=== PATIENT | male | born 1970 | race Two or more races ===

== ENCOUNTER 2024-03-20 17:17 | Emergency (ER) | payer MEDICAID, OTHER ==
[~2024-03-20] VITALS: Ht 177.8 cm; Wt 82.0 kg
[2024-03-20 19:20] LABS: Basophils # (auto) 0.1 10 ^3/uL (0-0.2); Eosinophils # (auto) 0.2 10 ^3/uL (0-0.8); Hemoglobin 13.8 g/dL (13.5-17.5); Lymphocytes # (auto) 1.3 10 ^3/uL (0.4-5.4); Monocytes # (auto) 0.6 10 ^3/uL (0-1.3); White Blood Cell 5.8 10^3/uL (4.4-10.8)
[2024-03-20 19:21] LABS: Basophils % (auto) 1.2 % (0.0-2.0); Eosinophils % (auto) 4.2 % (0.0-7.0); Hematocrit 40.7 % (41.0-53.0); Mean Corpuscular Hgb Conc. 33.9 g/dL (32.0-36.0); Mean Corpuscular Volume 100.4 fL (80.0-100.0); Monocytes % (auto) 9.8 % (0.0-12.0); Neutrophils # (auto) 3.6 10 ^3/uL (1.6-8.6); Neutrophils % (auto) 61.8 % (37.0-80.0); Nucleated Red Blood Cells % 0.1 %; Red Blood Cells 4.05 10^6/uL (4.5-5.90); Red Cell Distribution Width 15.2 % (11.8-14.3)
[2024-03-20 19:37] LABS: Alanine Aminotransferase 50 U/L (7-40); Alkaline Phosphatase 105 U/L (46-116); Anion Gap 8 (5-15); Aspartate Aminotransferase 108 U/L (13-40); Calcium 9.4 mg/dL (8.7-10.4); Carbon Dioxide 25 mmol/L (20-30); Chloride 109 mmol/L (98-107); Glucose 107 mg/dL (74-106); Potassium 3.6 mmol/L (3.5-5.1); Sodium 142 mmol/L (136-145)
[2024-03-20 19:38] LABS: Albumin 4.1 g/dL (3.2-4.8); Bilirubin, Total 2.8 mg/dL (0.2-1.0); Total Protein 7.9 g/dL (5.7-8.2)
[2024-03-20 19:40] LABS: BUN/Creatinine Ratio 6.8 (10.0-20.0); Blood Urea Nitrogen < 5 mg/dL (9-23)
[2024-03-20 20:18] VITALS: BP 151/84; RESP 20; TEMP 98; O2SAT 98
[2024-03-20 20:23] VITALS: PULSE 103
[2024-03-20] MEDS: diphenhdrAMINE HCL 25 MG CAP PO ONE (20:24)
[2024-03-20] MEDS: HYDROcodone-ACET 5/325MG TAB PO ONE (20:24)
[2024-03-20] MEDS: DexAMETHasone SOD PHOS 10MG/1ML VIAL INJ IM ONE (20:24)
[2024-03-20] MEDS ORDERED: CEPH500C PO (20:39)
[2024-03-20] MEDS ORDERED: IBUP-1455 PO (20:39)
== END 2024-03-20 20:41 | disposition home or self-care (01) ==
LOC: ER 17:17 → EDBD 17:17 → ER 20:41
DX: S60.561A Insect bite (nonvenomous) of right hand, initial encounter (principal); R74.8 Abnormal levels of other serum enzymes; R07.89 Other chest pain; W57.XXXA Bitten or stung by nonvenomous insect and other nonvenomous arthropods, initial encounter; Y93.89 Activity, other specified; Y92.89 Other specified places as the place of occurrence of the external cause; Y99.8 Other external cause status
CPT/HCPCS: 36415; 80053; 84484; 85025; 93005; 96372; 99284; J1100